=== PATIENT | male | born 1955 | race Caucasian/White ===

== ENCOUNTER 2023-08-20 06:23 | Emergency (ER) | payer MEDICARE ==
[~2023-08-20] VITALS: Ht 182.9 cm; Wt 68.0 kg
[~2023-08-20 06:23] MED LIST: KEFLEX500 MG PO; MEDDOSEPAK PO; NABUMETONE500 MG PO
[2023-08-20] MEDS ORDERED: MELOXICAM15 MG PO (06:41)
[2023-08-20 07:00] VITALS: BP 129/81
== END 2023-08-20 07:00 | disposition home or self-care (01) ==
LOC: ED 06:23
DX: M25.521 Pain in right elbow (principal); F17.210 Nicotine dependence, cigarettes, uncomplicated